=== PATIENT | female | born 1945 | race Caucasian/White ===

== ENCOUNTER → 2017-01-24 | Outpatient (CLI) | payer MEDICARE ==
--- NOTE | 2017-01-25 07:54 | MM ---
Reason for exam: screening (asymptomatic). Last mammogram was performed 2 years ago. History: Patient is postmenopausal and is nulliparous. Family history of breast cancer in paternal cousin. Stereotactic core biopsy of the right breast, June 27, 2000. Core biopsy of the right breast. Took estrogen for 1 year beginning at age 51. Physical Findings: A clinical breast exam by your physician is recommended on an annual basis and results should be correlated with mammographic findings. MG 3D Screening Mammo W/Cad Bilateral CC and MLO view(s) were taken. Prior study comparison: January 23, 2015, bilateral MG screening mammo w CAD. March 29, 2013, bilateral digital screening mammo w/CAD. The breast tissue is almost entirely fat. Previous mammotome biopsy in the right breast. No significant changes when compared with prior studies. ASSESSMENT: Benign, BI-RAD 2 RECOMMENDATION: Routine screening mammogram of both breasts in 1 year.
== END | disposition home or self-care (01) ==
LOC: RADMAMWWP 09:38
PROVIDERS: ATTEND Family Medicine
DX: Z12.31 Encounter for screening mammogram for malignant neoplasm of breast (principal)
CPT/HCPCS: 77063; G0202

== ENCOUNTER → 2018-02-06 | Outpatient (CLI) | payer MEDICARE ==
--- NOTE | 2018-02-06 12:13 | BD ---
EXAMINATION TYPE: Axial Bone Density DATE OF EXAM: 02/06/2018 COMPARISON: NONE CLINICAL HISTORY: post menopausal female. Osteoporosis screening. Height: 5'2 Weight: 222 FRAX RISK QUESTIONS: History of Fracture in Adulthood: y Secondary Osteoporosis: RISK FACTORS HISTORY OF: Postmenopausal woman: MEDICATIONS: Additional Medications: blood pressure, eyes Additional History: EXAM MEASUREMENTS: Bone mineral densitometry was performed using the Fang[employer] System. Bone mineral density as measured about the Lumbar spine is: ----- L1-L4(G/cm2): 1.355 T Score Values are as follows: ----- L2: 1.5 ----- L3: 1.1 ----- L4: 1.6 ----- L1-L4:1.5 Bone mineral density about the R hip (g/cm2): 1.053 Bone mineral density about the L hip (g/cm2): 1.100 T Score values are as follows: -----R Neck: 0.1 -----L Neck: 0.4 -----R Total: 1.5 -----L Total: 2.0 IMPRESSION: Normal (Values between +1 and -1 indicate normal bone mass). Consider repeating this study in 5 year s or sooner if there is some new clinical indication. NOTE: T-SCORE=SD OF THE YOUNG ADULT MEAN.
--- NOTE | 2018-02-07 10:11 | MM ---
Reason for exam: screening (asymptomatic). Last mammogram was performed 1 year ago. History: Patient is postmenopausal and is nulliparous. Family history of breast cancer in paternal cousin. Stereotactic core biopsy of the right breast, June 27, 2000. Benign core biopsy of the right breast. Took estrogen for 1 year beginning at age 51. Physical Findings: A clinical breast exam by your physician is recommended on an annual basis and results should be correlated with mammographic findings. MG 3D Screening Mammo W/Cad Bilateral CC, MLO, and XCCL view(s) were taken. Prior study comparison: January 24, 2017, bilateral MG 3d screening mammo w/cad. January 23, 2015, bilateral MG screening mammo w CAD. There are scattered fibroglandular densities. There is no discrete abnormality. No significant changes when compared with prior studies. ASSESSMENT: Negative, BI-RAD 1 RECOMMENDATION: Routine screening mammogram of both breasts in 1 year.
== END | disposition home or self-care (01) ==
LOC: RADBDWWP 09:52
PROVIDERS: ATTEND Family Medicine
DX: Z12.31 Encounter for screening mammogram for malignant neoplasm of breast (principal); Z78.0 Asymptomatic menopausal state
CPT/HCPCS: 77063; 77067; 77080

== ENCOUNTER → 2018-11-29 | Outpatient (CLI) | payer MEDICARE ==
[2018-11-29 18:20] LABS: LDL Cholesterol,Calculated 110.8 mg/dL (0.0-131.0); VLDL Calculation 34.2 mg/dL (5.00-40.00)
== END | disposition home or self-care (01) ==
LOC: LABWHC1 09:17
PROVIDERS: ATTEND Family Medicine
DX: E78.2 Mixed hyperlipidemia (principal)
CPT/HCPCS: 36415; 80061

== ENCOUNTER → 2018-11-29 | Outpatient (CLI) | payer MEDICARE ==
[2018-11-29 10:59] LABS: HCT 40.1 % (34.0-46.0); HGB 13.6 gm/dL (11.4-16.0); MCH 30.3 pg (25.0-35.0); MCV 89.1 fL (80.0-100.0); Mean Platelet Volume 8.4; Platelet Count 281 k/uL (150-450); WBC 8.5 k/uL (3.8-10.6)
[2018-11-29 11:04] LABS: INR 0.9 (<1.2); Partial Thromboplastin Time 23.6 sec (22.0-30.0); Prothrombin Time 9.6 sec (9.0-12.0)
[2018-11-29 11:10] LABS: ALT 27 U/L (9-52); AST 21 U/L (14-36); Albumin 4.5 g/dL (3.5-5.0); Alkaline Phosphatase 50 U/L (38-126); Anion Gap 9 mmol/L; Blood Urea Nitrogen 16 mg/dL (7-17); Calcium 10.3 mg/dL (8.4-10.2); Carbon Dioxide 30 mmol/L (22-30); Chloride 103 mmol/L (98-107); Glucose 106 mg/dL (74-99); Potassium 4.8 mmol/L (3.5-5.1); Sodium 142 mmol/L (137-145); Total Bilirubin 0.5 mg/dL (0.2-1.3); Total Protein 7.2 g/dL (6.3-8.2)
[2018-11-29 11:18] LABS: Appearance,Urine Cloudy (Clear); Bacteria,Urine Moderate /hpf; Bilirubin,Urine Negative (Negative); Blood,Urine Negative (Negative); Color,Urine Yellow; Glucose,Urine (UA) Negative (Negative); Ketones,Urine Negative (Negative); Leukocyte Esterase,Urine Small (Negative); Nitrite,Urine Negative (Negative); PH, Urine 5.5 (5.0-8.0); Protein,Urine Negative (Negative); RBC,Urine 1 /hpf (0-5); Specific Gravity,Urine 1.015 (1.001-1.035); Squamous Epithelial Cell,Urine 10 /hpf (0-4); Urobilinogen,Urine <2.0 mg/dL (<2.0); WBC,Urine 5 /hpf (0-5)
== END ==
LOC: LABPAT 09:13
PROVIDERS: ATTEND Orthopaedic Surgery
DX: Z01.818 Encounter for other preprocedural examination (principal); Z01.812 Encounter for preprocedural laboratory examination; Z51.81 Encounter for therapeutic drug level monitoring; Z79.01 Long term (current) use of anticoagulants
CPT/HCPCS: 80053; 81001; 85027; 85610; 85730; 87070; 93005

== ENCOUNTER 2018-12-11 13:05 | Inpatient (IN) | payer MEDICARE ==
[2018-12-07 09:28] VITALS: BMI 39.3
[~2018-12-11 13:05] MED LIST: ACETAMINOPHEN TAB 500 MG TAB PO ONE; HYDROmorphone 0.5 MG/0.5 ML SYRINGE IVP PRN; LIDOCAINE 1% 20 ML VIAL (10MG/ML) FOR IV START INTRADERMA PRN; MELOXICAM 7.5 MG TAB PO ONE; ONDANSETRON 4 MG/2 ML VIAL IVP ONE; TRANEXAMIC ACID 1,000 MG in SODIUM CHLORIDE 0.9% 100 ML IVPB ONE; VANCOMYCIN 1,500 MG in SODIUM CHLORIDE 0.9% 250 ML IVPB ONE
[2018-12-11] MEDS: LACTATED RINGERS 1,000 ML IV SCH ×2 (13:41→19:15)
[2018-12-11] MEDS ORDERED: DEXAMETHASONE SOD PHOSPHATE 10 MG/ML 1 ML VIAL IV ONE (14:19)
[2018-12-11] MEDS ORDERED: MIDAZOLAM (PF) 2 MG/2 ML VIAL IVP ONE (14:27)
[2018-12-11] MEDS ORDERED: ROPIVACAINE 1,100 MG, SODIUM CHLORIDE 0.9% 500 ML 330 ML MISCELLANE PRN ×2 (15:16)
[2018-12-11] MEDS ORDERED: SODIUM CHLORIDE 0.9% 100 ML BAG ONE (15:26)
[2018-12-11] MEDS ORDERED: TRANEXAMIC ACID 1,000 MG/10 ML VIAL ONE (15:26)
[2018-12-11] MEDS ORDERED: PROPOFOL 10 MG/ML 20 ML VIAL IV ONE (15:26)
[2018-12-11] MEDS ORDERED: PHENYLEPHRINE-0.9% NACL SYG 1 MG/10 ML SYRINGE ONE (15:26)
[2018-12-11] MEDS ORDERED: MIDAZOLAM 2 MG/2 ML VIAL ONE (15:26)
[2018-12-11] MEDS ORDERED: LIDOCAINE 1% INJ 10MG/ML (20 ML MDV) ONE (15:26)
[2018-12-11] MEDS: ROPIVACAINE 246.25 MG, EPINEPHrine 0.5 MG, KETOROLAC 30 MG, cloNIDine HCL/PF 80 MCG, WA... MISCELLANE ONE ×15 (15:58→17:02)
[2018-12-11] MEDS ORDERED: ceFAZolin 3,000 MG in SODIUM CHLORIDE 0.9% IRRIGATIO 3,000 ML IRRIGATION ONE (16:02)
[2018-12-11] MEDS ORDERED: LACTATED RINGERS 1,000 ML IV ONE (17:00)
--- NOTE | 2018-12-11 17:07 | P.OP ---
Date of Procedure: 12/11/18 Procedure(s) Performed: PREOPERATIVE DIAGNOSIS: Left knee severe osteoarthritis with genu varum POSTOPERATIVE DIAGNOSIS: Left knee severe osteoarthritis with genu varum OPERATION: Left knee cemented total replacement arthroplasty. ANESTHESIA: Spinal ESTIMATED BLOOD LOSS: 100 ml. INFANT CAREGIVER: Citlaly Antony PA-C (assistance with: patient positioning, retraction, exposure, hemostasis, leg positioning, implantation, irrigation, closure, dressing) COMPLICATIONS: None apparent. COMPONENTS IMPLANTED: Persona system from [employer] INDICATIONS: Mrs. Perry is a 72 year old female with a history of left knee osteoarthritis. Conservative treatment has been tried and has been unsuccessful in controlling symptoms adequately. The operation of knee replacement has been discussed at length in the office, as well as potential risks and complications. These are inclusive of, but not limited to: bleeding, infection, scarring, discomfort, blood vessel and nerve damage, need for further surgery, failure to relieve symptoms, persistence, recurrence, or worsening of problems, loosening, dislocation, wear, blood clot, pulmonary embolism, , gait dysfunction, stiffness, and other risks as discussed in the office. The patient elects to proceed and the consent form has been signed. PROCEDURE: The patient was taken to the operating room and positioned on the operating room table in the supine position. Anesthesia was initiated. Care was taken to make sure that all pressure points were adequately padded. The operative lower extremity was prepped and draped in the usual aseptic fashion using ChloraPrep. Ioban drape was used for the case and the patient received intravenous antibiotics within one hour of the incision. A pneumotourniquet and leg menjivar were used for the case. The limb was exsanguinated with an Esmarch bandage and the tourniquet was inflated to 350 mmHg. Time-out was called confirming the patient's identity, side, procedure and administration of antibiotics and tranexamic acid, 1 g IV. The incision was then created midline directly over the knee, carried down through skin and into the subcutaneous tissues and down to fascia. Full thickness subcutaneous medial flap was developed. Medial parapatellar arthrotomy was performed and the interior of the knee was inspected. There was end-stage osteoarthritis of the knee with a mild to moderate genu varum type deformity. The fat pad was excised and proximal medial release on the tibia was completed using meticulous dissection and a curved osteotome. The anterior cruciate ligament was taken down. Note was made of significant attrition of the anterior and significant degenerative appearance of the posterior cruciate ligaments. The exposure was excellent. The knee was flexed 90 degrees and the patella was everted. A spot was chosen on the femur approximately 1 cm anterior to the posterior cruciate ligament insertion and an intramedullary hole was created within the femur. The intramedullary guide was then set to 5 degrees of valgus. The distal cutting block was attached and pinned into position. An appropriate amount of distal femoral resection was set. The oscillating saw was then used to make the distal femoral cut. This cut was confirmed to be flat with the flat end of an osteotome. The retractors were placed around the tibia and the tibial surface was addressed. The angle and depth of resection was adjusted using an extramedullary cutting guide. The guide had a built-in 3 degree posterior slope cut. Once the cutting guide was adjusted appropriately and in line with the axis of the tibia and confirmed to be in good position in relation to the second metatarsal and transmalleolar axis, the tibial cut was then created with protection of the posterior neurovascular structures and the collateral ligaments. The tibial cut surface was removed and sized. Femoral sizing was then accomplished using anterior referencing. Care was taken to analyze the posterior condyles for signs of deficiency or severe wear, and adjustments to the guide were made, as appropriate. 3 degree external rotation pins were placed. The cutting jig for the femur was applied to these pins. The planned cuts were further analyzed prior to performing them with the oscillating saw. No femoral notching was produced. Bone fragments were removed and the cut surfaces were finished, as necessary, with a reciprocating saw. Spacer block technique was then used to confirm that the flexion and extension gaps were equal. Soft tissue releases and adjustment of the tibial and/or femoral cuts were made, as necessary, until the gaps were equal. This included release of the posterior cruciate ligament, which was tight in this patient. The femur was then further finished for a posterior cruciate ligament substituting component. Patellar resurfacing was performed using a reamer. The size of the required patellar component was estimated and the patellar surface was then reamed down to a residual thickness which would recreate the shingle springs thickness with the component. The exact placement of the patellar component was adjusted for position based on preoperative x-rays and intraoperative findings. Prior to placing trial components, anesthetic solution consisting of ropivicaine with epinephrine, ketorolac, and clonidine was injected carefully and methodically in a grid pattern using aspiration technique into the soft tissue around the knee circumferentially, starting with the deeper tissues first and progressing to fascia, and then finally the skin/subcutaneous tissue. Particular care was taken when injecting the posterior capsule. The trial components were inserted. The tibial tray was allowed to self center and the patella was noted to track very well. The position of the tibial component was marked and the tibia was then finished for a stemmed tibial component. Cement was mixed on the back table and applied to the final components. Trial components were removed and the cut surfaces of the bone were pulse lavaged thoroughly and dried. Cement was then applied to the tibial viky face and pressurized into the surface using finger pressurization technique. The tibial component was then applied and excess cement was removed after it was impacted securely and noted to be flush with the cut surface. In similar fashion, the cement was applied to the cut femoral surface, pressurized in using finger pressurization and the component was impacted into place. Excess cement was removed. The polyethylene spacer was then implanted and locked into position. The patellar component was then applied in similar technique and a patellar clamp was used to hold the patella in place as the cement hardened. Once the cement had fully hardened, the knee was reinspected. Any other cement extrusion was removed and final kinematic testing showed range of motion from 0 to 130 degrees with excellent stability, both medially and laterally and appropriate alignment of the leg. Patellar tracking was excellent. The knee was then thoroughly pulse lavaged with normal saline. The tourniquet wa s deflated and hemostasis was obtained with electrocautery and IV tranexamic acid, 1 g given prior to inflation of the tourniquet and another gram given at the time of closure. Closure was with #2 Ethibond in the fascia and supplemented with #2 Quill, 2-0 Vicryl suture was used for the subcutaneous tissues and 3-0 Quill for the skin. Dermabond/Steri-Strips were then applied. A lightly compressive dressing was applied using Webril and an Atul wrap. The patient was then transferred to stretcher and taken to the recovery room in stable condition. Sponge and needle counts were correct.
[2018-12-11] MEDS ORDERED: BISACODYL 10 MG SUPP RECTAL PRN (17:43)
[2018-12-11] MEDS ORDERED: MAGNESIUM HYDROXIDE 2,400 MG/10 ML CUP PO PRN (17:43)
[2018-12-11] MEDS ORDERED: HYDROmorphone 0.5 MG/0.5 ML SYRINGE IVP PRN ×3 (17:43)
[2018-12-11] MEDS ORDERED: NA PHOS,M-B/NA PHOS,DI-BA 133 ML ENEMA RECTAL PRN (17:43)
[2018-12-11] MEDS ORDERED: NALOXONE 0.4 MG/ML 1 ML VIAL IV PRN (17:43)
[2018-12-11] MEDS ORDERED: HYDROcodone/APAP 5-325MG 1 EACH TAB PO PRN (17:43)
[2018-12-11] MEDS ORDERED: ONDANSETRON 4 MG/2 ML VIAL IVP PRN (17:43)
--- NOTE | 2018-12-11 18:20 | XR ---
EXAMINATION TYPE: XR knee limited LT DATE OF EXAM: 12/11/2018 COMPARISON: NONE HISTORY: Postop knee surgery TECHNIQUE: 2 views FINDINGS: There is a left knee prosthesis. Components are in anatomic position. IMPRESSION: No complicating process seen.
[2018-12-11] MEDS ORDERED: SENNOSIDES-DOCUSATE SODIUM 1 EACH TAB PO SCH (21:00)
[2018-12-11] MEDS ORDERED: PSEUDOEPHEDRINE 30 MG TAB PO PRN (21:13)
[2018-12-11] MEDS ORDERED: FLUTICASONE 50MCG/SPRAY NASAL 16GM EA NOSTRIL SCH (21:30)
[2018-12-11] MEDS ORDERED: TEMAZEPAM 15 MG CAP PO PRN (22:00)
[2018-12-11] MEDS: HYDROcodone/APAP 5-325MG 1 EACH TAB PO PRN (22:35)
--- NOTE | 2018-12-11 23:19 | CONS ---
CONSULTATION DATE OF SERVICE: 12/11/2018 REASON FOR CONSULTATION: Advice regarding hypertension and other medical issues, requested by Dr. Dawn. HISTORY OF PRESENT ILLNESS: This 72-year-old woman with a past medical history of multiple medical problems, including hypertension, history of DJD, history of joint replacement most recently is being followed by Dr. Kathleen Grant in the outpatient setting. She underwent left total knee joint arthroplasty by Dr. Dawn. The patient tolerated the procedure well. There is no history of any fever, rigor or chills. No history of headache, loss of consciousness, seizures. The patient's blood pressure is slightly elevated. PAST MEDICAL HISTORY: 1. History of hypertension. 2. History of DJD. 3. History of tonsillectomy. 4. History of right knee arthroplasty. MEDICATIONS: 1. Restasis 1 application both eyes b.i.d. 2. Nasacort 1 spray at bedtime. 3. Sudafed 60 mg q.6 p.r.n. 4. Aleve 220 mg b.i.d. p.r.n. 5. Toprol-XL 50 mg p.o. daily. 6. HydroDIURIL 25 mg p.o. daily. 7. Zithromax as directed. 8. Senokot-S 1 p.o. b.i.d. 9. Xarelto 10 mg p.o. daily. 10.[place] 5 mg one to two q.4 to 6 p.r.n. 11.Aspirin 81 mg daily. ALLERGIES: NONE. FAMILY HISTORY: History of cancer, DVT, leukemia, DVT in the legs. SOCIAL HISTORY: No history of smoking. Occasional alcohol intake. REVIEW OF SYSTEMS: ENT: No diminished hearing. No diminished vision. CARDIOVASCULAR SYSTEM: No angina, palpitations. RESPIRATORY SYSTEM: No cough, hemoptysis. GI: No nausea, vomiting. : No dysuria or retention. NERVOUS SYSTEM: No numbness, weakness. ALLERGY/IMMUNOLOGY: No asthma, hayfever. MUSCULOSKELETAL: As mentioned earlier. HEMATOLOGY/ONCOLOGY: As mentioned earlier. ENDOCRINE: As mentioned earlier. CONSTITUTIONAL: As mentioned earlier. DERMATOLOGY: Negative. RHEUMATOLOGY: Negative. PSYCHIATRY: As mentioned earlier. PHYSICAL EXAMINATION: Patient alert and oriented x3. Pulse 87, blood pressure 156/70, respiration 16, temperature 97.6, pulse ox 100% on 3 L. HEENT: Conjunctivae normal. Oral mucosa moist. NECK: No jugular venous distention. No carotid bruit. No lymph node enlargement. CARDIOVASCULAR SYSTEM: S1, S2 muffled. RESPIRATORY SYSTEM: Breath sounds diminished at the bases. No rhonchi. No crackles. ABDOMEN: Soft, non-tender. LEGS: Status post left knee arthroplasty. NERVOUS SYSTEM: Higher functions as mentioned earlier. Moves all 4 limbs. No focal motor or sensory deficit. LYMPHATICS: No lymph node palpable in neck, axillae or groin. SKIN: No ulcer, rash, bleeding. JOINTS: As mentioned earlier. LABS DONE PRIOR TO ADMISSION: CBC within normal limits. Coags normal. Chemistry shows calcium 10.3, cholesterol 205. Otherwise normal. UA noted. ASSESSMENT: 1. Status post left total knee joint arthroplasty. 2. Hypertension. 3. History of degenerative joint disease. 4. Seasonal allergies. 5. Right hemifacial spasm. RECOMMENDATIONS AND DISCUSSION: In this 72-year-old woman who presented with multiple medical issues, at this time I recommend to continue current management, continue symptomatic treatment. Otherwise, DVT prophylaxis. The patient has a family history of DVT. I recommend continuing with Xarelto. Otherwise, the home medications may be continued, including metoprolol and hydrochlorothiazide. Otherwise, I would recommend incentive spirometry. Will follow the patient closely with you. The patient may be asked to follow up with Dr. Kathleen Grant closely after discharge. Thank you, Dr. Dawn, for letting us participate in the care of this patient. MMODL / IJN: [id number] /
[2018-12-12] MEDS: ceFAZolin IN SWFI 2 GM/20 ML SYRINGE IVP SCH ×2 (01:06→10:35)
[2018-12-12] MEDS: LACTATED RINGERS 1,000 ML IV SCH ×2 (03:25)
[2018-12-12] MEDS: HYDROcodone/APAP 5-325MG 1 EACH TAB PO PRN ×2 (04:20→10:56)
[2018-12-12] MEDS ORDERED: METOPROLOL SUCCINATE (ER) 50 MG TAB.ER.24H PO SCH (09:00)
[2018-12-12] MEDS ORDERED: HYDROCHLOROTHIAZIDE 25 MG TAB PO SCH (09:00)
[2018-12-12] MEDS ORDERED: cycloSPORINE 0.05% OPHTH 0.4 ML DROPERETTE BOTH EYES SCH (09:00)
[2018-12-12] MEDS ORDERED: RIVAROXABAN 10 MG TAB PO SCH (09:00)
[2018-12-12] MEDS ORDERED: MELOXICAM 7.5 MG TAB PO SCH (09:00)
--- NOTE | 2018-12-12 09:56 | P.DS ---
Providers Date of admission: 12/11/18 17:43 Expected date of discharge: 12/12/18 Attending physician: Rober Dawn Consults: 12/11/18 17:43 Consult Physician Routine Consulting Provider: Odalys Rivers Consult Reason/Comments: Medical Management Do you want consulting provider notified?: Yes Primary care physician: Kathleen Grant - Discharge Diagnosis(es) (1) Osteoarthritis of left knee Current Visit: Yes Status: Acute (2) Status post total left knee replacement Current Visit: Yes Status: Acute Hospital Course: This is a 72-year-old female who was last seen with complaint of continued left knee pain. The patient has a known history of degenerative arthritis of the left knee and presents to discuss surgical options. After discussion and consideration the patient elects to proceed with total left knee arthroplasty. The patient is seen preoperatively by her primary care physician and cleared for surgery. The patient is admitted to [facility] for total left knee arthroplasty. The procedures performed without complication or sequelae. He is doing well postoperatively. Vital signs are stable at discharge. Labs are stable at discharge. the patient is ambulating well with walker with minimal assistance. The patient is discharged to home on postop day #1 pending medical clearance. Please see orders and refer to the med rec for accurate list of medications. Patient Condition at Discharge: Good Plan - Discharge Summary Discharge Rx Participant: Yes New Discharge Prescriptions: New Aspirin [Adult Low Dose Aspirin EC] 81 mg PO DAILY #1 tablet. HYDROcodone/APAP 5-325MG [[place] 5-325] 1 - 2 each PO Q4-6H PRN #50 tab PRN Reason: Pain Sennosides-Docusate Sodium [Senokot-S] 1 tab PO BID #60 tablet Rivaroxaban [Xarelto] 10 mg PO DAILY #5 tab No Action Metoprolol Succinate (ER) [Toprol XL] 50 mg PO DAILY Hydrochlorothiazide [Hydrodiuril] 25 mg PO DAILY Pseudoephedrine HCl [Sudafed] 60 mg PO Q6HR PRN PRN Reason: allergies Triamcinolone Acetonide [Nasacort] 1 spray NS HS cycloSPORINE [Restasis] 1 applicator BOTH EYES BID Naproxen Sodium [Aleve] 220 mg PO BID PRN PRN Reason: Pain Azithromycin [Zithromax Z-pack] 0 mg PO DIRECTED Discharge Medication List Hydrochlorothiazide [Hydrodiuril] 25 mg PO DAILY 12/20/14 [History] Metoprolol Succinate (ER) [Toprol XL] 50 mg PO DAILY 12/20/14 [History] Pseudoephedrine HCl [Sudafed] 60 mg PO Q6HR PRN 12/18/15 [History] Triamcinolone Acetonide [Nasacort] 1 spray NS HS 12/18/15 [History] Azithromycin [Zithromax Z-pack] 0 mg PO DIRECTED 12/07/18 [History] Naproxen Sodium [Aleve] 220 mg PO BID PRN 12/07/18 [History] cycloSPORINE [Restasis] 1 applicator BOTH EYES BID 12/07/18 [History] Aspirin [Adult Low Dose Aspirin EC] 81 mg PO DAILY #1 tablet. 12/11/18 [Rx] HYDROcodone/APAP 5-325MG [[place] 5-325] 1 - 2 each PO Q4-6H PRN #50 tab 12/11/18 [Rx] Rivaroxaban [Xarelto] 10 mg PO DAILY #5 tab 12/11/18 [Rx] Sennosides-Docusate Sodium [Senokot-S] 1 tab PO BID #60 tablet 12/11/18 [Rx] Follow up Appointment(s)/Referral(s): Citlaly Antony, CHIP [PHYSICIAN [employer] DEFENSE SPECIALIST] - 12/28/18 1:00 pm Activity/Diet/Wound Care/Special Instructions: May bear weight as tolerated with walker. May shower after 48 hours if no drainage. CPM 5-6 hours daily. Discharge Disposition: HOME WITH HOME HEALTH SERVICES
--- NOTE | 2018-12-12 11:03 | P.PN ---
Progress Note - Text 12/12 640am 72-year-old female status post total knee replacement by Dr. Dawn. Patient seen this morning, she has an On-Q pump for postop pain control, she has a VAS of 2 the solution running at 8 mL an hour. Plan to continue On-Q pump infusion
--- NOTE | 2018-12-12 11:17 | P.ONQ ---
Anesthesiology Proc Note - PNB - Peripheral Nerve Block Performed Left Adductor Canal Infusion Time Out Performed: Yes Procedure Start Time: 14:27 Procedure Stop Time: 14:34 Indication: Acute Post-Operative Pain, Requested by physician Sedation Type: Sedate with meaningful contact maintained Preparation: Sterile Dressing Position: Supine Catheter: Indwelling Needle Size: 100mm (4") Needle Gauge: 21 Technique: Ultrasound (ropi .5%) Blood Aspirated: No Pain Paresthesia on Injection Noted: No Resistance on Injection: Normal Events: Uneventful and Well Tolerated
[2018-12-12 11:20] VITALS: BP 148/82; PULSE 75; RESP 20; TEMP 97.6
--- NOTE | 2018-12-14 00:25 | PN ---
PROGRESS NOTE DATE OF SERVICE: 12/12/2018 This 72-year-old woman who was admitted after left total knee arthroplasty is improving significantly. No chest pain. No palpitations. EXAM: Alert and oriented x3. Pulse is 70. Blood pressure 157/73, respiration 17, temperature 97.7, Pulse ox 94% on room air skin: S1, S2 muffled. RESPIRATORY SYSTEM: Breath sounds diminished at the bases. Scattered rhonchi and crackles ABDOMEN: Soft. Legs status surgery. CENTRAL NERVOUS SYSTEM: No focal deficits. LABS: Reviewed. ASSESSMENT: 1. Status post left total knee arthroplasty. 2. Hypertension. 3. History of degenerative joint disease. 4. Seasonal allergies. 5. Right catalina seizures past. RECOMMENDATIONS AND DISCUSSION: Recommend to continue current medications. Continue to monitor. Symptomatic treatment. Closely monitor with Orthopedic surgery. Resume the home medication after discharge and closely follow with primary physician in the outpatient setting. Further recommendations recommendations to follow. MMODL / IJN: [id number] /
== END 2018-12-12 13:23 | disposition home health service (06) | DRG 470 ==
LOC: OR 13:05 → EDSTATUS 15:20 → 4SSUR 17:30 → OBSVTOIN 17:43 → 4SSUR 17:43 → OR 17:43 → INTOOBSV 17:43
PROVIDERS: ADMIT Orthopaedic Surgery; ATTEND Orthopaedic Surgery
PROC: 0SRD0J9 Replacement of Left Knee Joint with Synthetic Substitute, Cemented, Open Approach (ICD-10-PCS; principal; 2018-12-11 15:20)
DX: M17.12 Unilateral primary osteoarthritis, left knee (principal); M21.162 Varus deformity, not elsewhere classified, left knee; G51.31 Clonic hemifacial spasm, right; I10 Essential (primary) hypertension; J30.2 Other seasonal allergic rhinitis; E78.2 Mixed hyperlipidemia; Z79.82 Long term (current) use of aspirin; Z79.899 Other long term (current) drug therapy; Z86.010 Personal history of colon polyps; Z96.651 Presence of right artificial knee joint; Z88.8 Allergy status to other drugs, medicaments and biological substances; Z80.6 Family history of leukemia; Z80.41 Family history of malignant neoplasm of ovary; Z82.49 Family history of ischemic heart disease and other diseases of the circulatory system
CPT/HCPCS: 88300; 94760

== ENCOUNTER 2018-12-25 11:51 | Emergency (ER) | payer MEDICARE ==
[2018-12-25 12:28] VITALS: RESP 18; TEMP 98.3
--- NOTE | 2018-12-25 13:35 | ED ---
General Adult HPI - General Chief complaint: Extremity Problem,Nontraumatic Stated complaint: Foot swelling Time Seen by Provider: 12/25/18 12:25 Source: patient, RN notes reviewed Mode of arrival: wheelchair Limitations: physical limitation - History of Present Illness Initial comments: This is a 73-year-old female presents emergency Department complaining of pain at her first MTP joint. Patient states the area is red and hot started last night. Patient states she had knee surgery a couple weeks ago and she was worried about blood clot. Patient denies any swelling to the leg denies any edema to the legs. Patient denies any calf tenderness. Patient states she's never had gout in the past. - Related Data Home Medications Medication Instructions Recorded Confirmed Hydrochlorothiazide [Hydrodiuril] 25 mg PO DAILY 12/20/14 12/11/18 Metoprolol Succinate (ER) [Toprol 50 mg PO DAILY 12/20/14 12/11/18 XL] Pseudoephedrine HCl [Sudafed] 60 mg PO Q6HR PRN 12/18/15 12/11/18 Triamcinolone Acetonide [Nasacort] 1 spray NS HS 12/18/15 12/11/18 Azithromycin [Zithromax Z-pack] 0 mg PO DIRECTED 12/07/18 12/11/18 Naproxen Sodium [Aleve] 220 mg PO BID PRN 12/07/18 12/11/18 cycloSPORINE [Restasis] 1 applicator BOTH EYES BID 12/07/18 12/11/18 Previous Rx's Medication Instructions Recorded Aspirin [Adult Low Dose Aspirin EC] 81 mg PO DAILY #1 tablet. 12/11/18 HYDROcodone/APAP 5-325MG [[place] 1 - 2 each PO Q4-6H PRN #50 tab 12/11/18 5-325] Rivaroxaban [Xarelto] 10 mg PO DAILY #5 tab 12/11/18 Sennosides-Docusate Sodium 1 tab PO BID #60 tablet 12/11/18 [Senokot-S] Indomethacin [Indocin] 50 mg PO Q8H #12 capsule 12/25/18 Allergies Allergy/AdvReac Type Severity Reaction Status Date / Time No Known Allergies Allergy Verified 12/25/18 12:28 Review of Systems ROS Statement: Those systems with pertinent positive or pertinent negative responses have been documented in the HPI. ROS Other: All systems not noted in ROS Statement are negative. Past Medical History Past Medical History: Hypertension, Osteoarthritis (OA) Additional Past Medical History / Comment(s): seasonal allergies, finishing antibiotic for a cough-much better, right hemifacial spasm since 2014 History of Any Multi-Drug Resistant Organisms: None Reported Past Surgical History: Joint Replacement, Tonsillectomy Additional Past Surgical History / Comment(s): right knee replaced, colonoscopy,. Sinus surgery, deviated septum repair Past Anesthesia/Blood Transfusion Reactions: Motion Sickness, Postoperative Nausea & Vomiting (PONV) Past Psychological History: No Psychological Hx Reported Smoking Status: Never smoker Past Alcohol Use History: Occasional Past Drug Use History: None Reported - Past Family History Father Family Medical History: Cancer, Deep Vein Thrombosis (DVT) Additional Family Medical History / Comment(s): Leukemia,. DVT legs Sister(s) Family Medical History: Cancer Additional Family Medical History / Comment(s): Ovarian CA General Exam - General Exam Comments Initial Comments: GENERAL Patient is well-developed and well-nourished. Patient is in mild distress. EYES Patient's pupils are equal and round. Extraocular motion is intact SKIN Unremarkable NEURO The patient is alert and oriented 3 PYSCH Patient has normal interpersonal interactions. MUSCULOSKELETAL Left MTP is inflamed immediately and is very warm and exquisitely touch. There is no streaking and there was no history of any injury and there is no history of any she was being warmed because she just had recent knee surgery 2 weeks ago Limitations: physical limitation Course Vital Signs 12/25/18 12:24 Temperature 98.3 F Pulse Rate 101 H Respiratory 18 Rate Blood Pressure 137/80 O2 Sat by Pulse 96 Oximetry Disposition Clinical Impression: Gout Disposition: HOME SELF-CARE Instructions (If sedation given, give patient instructions): Gout (ED) Prescriptions: Indomethacin [Indocin] 50 mg PO Q8H #12 capsule Is patient prescribed a controlled substance at d/c from ED?: No Referrals: Kathleen Grant MD [Primary Care Provider] - 1-2 days
[2018-12-25] MEDS ORDERED: KETOROLAC 60 MG/2 ML VIAL IM STA (13:43)
[2018-12-25 13:59] VITALS: BP 145/67; PULSE 93
== END 2018-12-25 13:55 | disposition home or self-care (01) ==
LOC: EC 11:51
DX: M10.9 Gout, unspecified (principal); I10 Essential (primary) hypertension; M19.90 Unspecified osteoarthritis, unspecified site; Z79.899 Other long term (current) drug therapy; Z96.651 Presence of right artificial knee joint
CPT/HCPCS: 99283

== ENCOUNTER → 2020-02-08 | Outpatient (CLI) | payer MEDICARE ==
--- NOTE | 2020-02-11 09:38 | MM ---
Reason for exam: screening (asymptomatic). Last mammogram was performed 2 years ago. History: Patient is postmenopausal and is nulliparous. Family history of breast cancer in paternal cousin. Stereotactic core biopsy of the right breast, June 27, 2000. Benign core biopsy of the right breast. Took estrogen for 1 year beginning at age 51. Physical Findings: A clinical breast exam by your physician is recommended on an annual basis and results should be correlated with mammographic findings. MG 3D Screening Mammo W/Cad Bilateral CC and MLO view(s) were taken. Prior study comparison: February 06, 2018, bilateral MG 3d screening mammo w/cad. January 24, 2017, bilateral MG 3d screening mammo w/cad. There are scattered fibroglandular densities. Finding: There is an intermediate concern, suspicious 5 mm high density, circumscribed mass located 4 cm from the nipple in the 12 o'clock position of the right breast, best seen on CC view. ASSESSMENT: Incomplete: need additional imaging evaluation, BI-RAD 0 RECOMMENDATION: Ultrasound of the right breast. [facility] will attempt to contact patient to return for ultrasound.
== END | disposition home or self-care (01) ==
LOC: RADMAMWWP 11:02
PROVIDERS: ATTEND Family Medicine
DX: Z12.31 Encounter for screening mammogram for malignant neoplasm of breast (principal)
CPT/HCPCS: 77063; 77067

== ENCOUNTER → 2020-02-14 | Outpatient (CLI) | payer MEDICARE ==
--- NOTE | 2020-02-14 14:29 | USB ---
Reason for exam: additional evaluation requested from abnormal screening. History: Patient is postmenopausal and is nulliparous. Family history of breast cancer in paternal cousin. Stereotactic core biopsy of the right breast, June 27, 2000. Benign core biopsy of the right breast. Took estrogen for 1 year beginning at age 51. Physical Findings: Nurse did not find any significant physical abnormalities on exam. US Breast Workup Limited RT Right limited breast ultrasound including focal area of concern, retroareolar and axilla demonstrates a 0.5 x 0.3 x 0.5cm mixed lesion at 12 o'clock. These results were verbally communicated with the patient and result sheet given to the patient on 02/14/20. ASSESSMENT: Probably benign, BI-RAD 3 RECOMMENDATION: Ultrasound of the right breast in 6 months.
== END | disposition home or self-care (01) ==
LOC: RADUSWWP 13:40
PROVIDERS: ATTEND Family Medicine
DX: R92.8 Other abnormal and inconclusive findings on diagnostic imaging of breast (principal)

== ENCOUNTER → 2020-08-07 | Outpatient (CLI) | payer MEDICARE ==
--- NOTE | 2020-08-08 10:25 | USB ---
Reason for exam: follow-up at short interval from prior study. History: Patient is postmenopausal and is nulliparous. Family history of breast cancer in paternal cousin. Stereotactic core biopsy of the right breast, June 27, 2000. Benign core biopsy of the right breast. Took estrogen for 1 year beginning at age 51. Physical Findings: Nurse did not find any significant physical abnormalities on exam. US Breast Limited RT Right limited breast ultrasound including focal area of concern, retroareolar and axilla demonstrates no cystic or solid lesion seen. These results were verbally communicated with the patient and result sheet given to the patient on 08/07/20. ASSESSMENT: Negative, BI-RAD 1 RECOMMENDATION: Return to routine screening mammogram schedule for both breasts. Back on schedule.
== END | disposition home or self-care (01) ==
LOC: RADUSWWP 14:13
PROVIDERS: ATTEND Family Medicine
DX: R92.8 Other abnormal and inconclusive findings on diagnostic imaging of breast (principal)

== ENCOUNTER → 2021-06-15 | Outpatient (CLI) | payer MEDICARE ==
--- NOTE | 2021-06-15 21:49 | US ---
EXAMINATION TYPE: US transvaginal DATE OF EXAM: 06/15/2021 COMPARISON: Prior pelvic ultrasound September 03, 2011 CLINICAL HISTORY: N95.0 POSTMENOPAUSAL BLEEDING. 1 day episode of spot of blood, happened one other t lizbeth and none now, G0 TECHNIQUE: TV. Transvaginal sonographic images Date of LMP: 20+yrs ago EXAM MEASUREMENTS: Uterus: 5.9 x 4.1 x 3.7 cm Endometrial Stripe: 0.5cm Right Ovary: 1.8 x 1.9 x 1.3 cm Left Ovary: not seen 1. Uterus: Retroverted 1.4 x 1.4 x 1.5cm right sided fundal fibroid 2. Endometrium: mild fluid within EMC 3. Right Ovary: wnl 4. Left Ovary: not seen due to atrophy and bowel gas 5. Bilateral Adnexa: wnl 6. Posterior cul-de-sac: wnl Heterogeneous retroflexed uterus. Endometrium measures upper limits of normal at 4- 5 mm with small e ndometrial cyst or tiny trapped fluid. Slightly hyperechoic 1.5 cm right superior intramural fibroid. Present. No free fluid. Small sized right ovary consistent with postmenopausal age. Left ovary not identified. No adnexal mas ses seen. IMPRESSION: Small right 1.5 cm intramural fibroid thought present.
== END | disposition home or self-care (01) ==
LOC: RADUSWWP 16:50
PROVIDERS: ATTEND Family Medicine
DX: D25.9 Leiomyoma of uterus, unspecified (principal)
CPT/HCPCS: 76830

== ENCOUNTER → 2021-07-23 | Outpatient (CLI) | payer MEDICARE ==
--- NOTE | 2021-07-27 14:11 | MM ---
Reason for exam: screening (asymptomatic). Last mammogram was performed 1 year and 5 months ago. History: Patient is postmenopausal and is nulliparous. Family history of breast cancer in paternal cousin. Stereotactic core biopsy of the right breast, June 27, 2000. Benign core biopsy of the right breast. Took estrogen for 1 year beginning at age 51. Physical Findings: A clinical breast exam by your physician is recommended on an annual basis and results should be correlated with mammographic findings. MG 3D Screening Mammo W/Cad Bilateral CC and MLO view(s) were taken. XCCL view(s) were taken of the left breast. Prior study comparison: February 08, 2020, bilateral MG 3d screening mammo w/cad. February 06, 2018, bilateral MG 3d screening mammo w/cad. There are scattered fibroglandular densities. There are benign appearing round calcifications in the right breast. Previous mammotome biopsy in the right breast. There is chronic nodularity in the left breast, stable posterior outer breast. There is no discrete abnormality. ASSESSMENT: Benign, BI-RAD 2 RECOMMENDATION: Routine screening mammogram of both breasts in 1 year.
== END | disposition home or self-care (01) ==
LOC: RADMAMWWP 11:55
PROVIDERS: ATTEND Family Medicine
DX: Z12.31 Encounter for screening mammogram for malignant neoplasm of breast (principal); Z80.3 Family history of malignant neoplasm of breast; Z78.0 Asymptomatic menopausal state
CPT/HCPCS: 77063; 77067

== ENCOUNTER → 2021-09-30 | Outpatient (CLI) | payer MEDICARE ==
--- NOTE | 2021-09-30 15:45 | BD ---
EXAMINATION TYPE: Axial Bone Density DATE OF EXAM: 09/30/2021 COMPARISON: 02/06/2018 CLINICAL HISTORY: Height: 61.5 IN Weight: 227 LBS FRAX RISK QUESTIONS: History of Fracture in Adulthood: LT FOOT AGE 56, LT SHOULDER AGE 59 RISK FACTORS HISTORY OF: Active: YES Postmenopausal woman: AGE 46 Take estrogen and/or progesterone medications: NOT NOW How long: TOOK FOR 3 YEARS MEDICATIONS: Additional Medications: VIT D, HCTZ, METOPROLOL, RESTASIS, ALLOPURINOL EXAM MEASUREMENTS: Bone mineral densitometry was performed using the [employer]. Bone mineral density as measured about the Lumbar spine is: ----- L1-L4(G/cm2): 1.333 T Score Values are as follows: ----- L2: 1.3 ----- L3: 1.1 ----- L4: 1.5 ----- L1-L4: 1.3 Bone mineral density has: Decreased -0.7% since study of: 02/06/2018 Bone mineral density about the R hip (g/cm2): 1.085 Bone mineral density about the L hip (g/cm2): 1.106 T Score values are as follows: -----R Neck: 0.3 -----L Neck: 0.5 -----R Total: 1.6 -----L Total: 1.6 Bone mineral density has: Decreased -1.4% since study of: 02/06/2018 IMPRESSION: No evidence for osteoporosis or osteopenia. NOTE: T-SCORE=SD OF THE YOUNG ADULT MEAN.
== END | disposition home or self-care (01) ==
LOC: RADBDWWP 14:15
PROVIDERS: ATTEND Family Medicine
DX: Z78.0 Asymptomatic menopausal state (principal)
CPT/HCPCS: 77080

== ENCOUNTER → 2023-02-14 | Outpatient (CLI) | payer MEDICARE ==
--- NOTE | 2023-02-15 19:46 | MM ---
Reason for Exam: Screening (asymptomatic). Last mammogram was performed 1 year(s) and 7 month(s) ago. Patient History: Menarche at age 13. Patient has no children. Postmenopausal. Estrogen for 1 year from age 51 until age 52. Benign Core Biopsy on the right side. 06/27/2000, Stereotactic Core Biopsy on the Right side. Paternal cousin had breast cancer. Maternal cousin had ovarian cancer under age 50. Paternal cousin had ovarian cancer under age 50. Sister had ovarian cancer under age 50. Risk Values: Kristal 5 year model risk: 2.9%. NCI Lifetime model risk: 5.9%. Prior Study Comparison: 01/23/2015 Bilateral Screening Mammogram, [facility]ED WITH [facility]. 01/24/2017 Bilateral Screening Mammogram, MERGED WITH [facility]. 02/06/2018 Bilateral Screening Mammogram, MERGED WITH [facility]. 02/08/2020 Bilateral Screening Mammogram, MERGED WITH [facility]. 07/23/2021 Bilateral Screening Mammogram, MERGED WITH [facility]. Tissue Density: There are scattered fibroglandular densities. Findings: Analyzed By CAD. Microclip right breast from prior biopsy. Chronic nodularity posterior lateral left breast most likely small intramammary lymph node. Benign oil cyst calcification on the right. There is no suspicious group of microcalcifications or new suspicious mass in either breast. Overall Assessment: Benign, BI-RAD 2 Management: Screening Mammogram of both breasts in 1 year. . Patient should continue monthly self-breast exams. A clinical breast exam by your physician is recommended on an annual basis. This exam should not preclude additional follow-up of suspicious palpable abnormalities. Note on Kristal scores and lifetime risk: 1. A Kristal score greater than 3% is considered moderate risk. If this is the case, consider specialist referral to assess eligibility for a risk reducing agent. 2. If overall lifetime risk for the development of breast cancer is 20% or higher, the patient may qualify for future screening with alternating mammogram and breast MRI. Electronically signed and approved by: Gail Arnold M.D. Radiologist
== END | disposition home or self-care (01) ==
LOC: RADMAMWWP 07:24
PROVIDERS: ATTEND Family Medicine
DX: Z12.31 Encounter for screening mammogram for malignant neoplasm of breast (principal); Z78.0 Asymptomatic menopausal state; Z80.3 Family history of malignant neoplasm of breast; Z80.41 Family history of malignant neoplasm of ovary
CPT/HCPCS: 77063; 77067